=== PATIENT | female | born 1995 | race Caucasian/White ===

== ENCOUNTER 2019-07-06 09:54 | Inpatient (IN) | payer BC ==
--- NOTE | 2019-07-06 12:11 | PCM.LDHP ---
L&D History of Present Illness - General Date of Service: 07/06/19 Admit Problem/Dx: Admission Diagnosis/Problem Admission Diagnosis/Problem Source of Information: Patient History Limitations: Reports: No Limitations - History of Present Illness Introduction:: 24 year old at 39+ weeks here for induction of labor. PNC with myself without complications. H&P Review of Systems - Review of Systems: Review Of Systems: See Below General: Reports: No Symptoms HEENT: Reports: No Symptoms Pulmonary: Reports: No Symptoms Cardiovascular: Reports: No Symptoms Gastrointestinal: Reports: No Symptoms Genitourinary: Reports: No Symptoms Musculoskeletal: Reports: No Symptoms Skin: Reports: No Symptoms Psychiatric: Reports: No Symptoms Neurological: Reports: No Symptoms Hematologic/Lymphatic: Reports: No Symptoms Immunologic: Reports: No Symptoms L&D Exam - Exam Exam: See Below - Vital Signs Vital Signs: Last Vital Signs Temp 37.2 C 07/06/19 10:52 Pulse 96 07/06/19 10:52 Resp 18 07/06/19 10:52 BP 118/70 07/06/19 10:52 Pulse Ox 96 07/06/19 10:52 - OB Specific Contraction Intensity: Moderate to Strong Movement: Active Heart Tones: Present Heart Rate (FHR) Variability: Moderate (6-25 bmp) Presentation: Vertex - Exam General: Alert, Oriented HEENT: PERRLA, Conjunctiva Clear, EACs Clear, EOMI, Hearing Intact, Mucosa Moist & [place], Nares Patent, Normal Nasal Septum, Posterior Pharynx Clear, TMs Clear Neck: Supple, Trachea Midline Lungs: Clear to Auscultation, Normal Respiratory Effort Cardiovascular: Regular Rate, Regular Rhythm GI/Abdominal Exam: Normal Bowel Sounds, Soft, Non-Tender, No Organomegaly, No Distention, No Abnormal Bruit, No Mass, Pelvis Stable Rectal Exam: Normal Exam, Normal Rectal Tone Genitourinary: Normal external exam, Normal bimanual exam, Normal speculum exam Back Exam: Normal Inspection, Full Range of Motion Extremities: Normal Inspection, Normal Range of Motion, Non-Tender, No Pedal Edema, Normal Capillary Refill Skin: Warm, Dry, Intact Neurological: Cranial Nerves Intact, Reflexes Equal Bilateral Psychiatric: Alert, Normal Affect, Normal Mood Problem List Initiated/Reviewed/Updated: Yes Assessment/Plan Comment:: Doing well. Will start pitocin when staffing able
[2019-07-06] MEDS ORDERED: Sodium Chloride 0.9% 10 ML Syringe FLUSH PRN (14:11)
[2019-07-06] MEDS ORDERED: Ondansetron 4 MG/2 ML SDV IVPUSH PRN (14:11)
[2019-07-06] MEDS ORDERED: Nalbuphine 10 MG/1 ML Vial IVPUSH PRN (14:11)
[2019-07-06] MEDS ORDERED: Oxytocin/Lactated Ringers 10 UNIT/1,000 ML BAG IV SCH ×2 (14:15)
[2019-07-06] MEDS: Lactated Ringers 1,000 ML IV SCH ×3 (14:26→23:02)
[2019-07-06] MEDS ORDERED: Ampicillin 2 GM in Sodium Chloride 0.9% 100 ML IV ONE (14:30)
[2019-07-06] MEDS ORDERED: fentaNYL/Bupivacaine/NS 2 MCG-0.125% 250 ML EPIDUR PRN (16:54)
[2019-07-06] MEDS ORDERED: fentaNYL 100 MCG/2 ML SDV EPIDUR PRN (16:54)
[2019-07-06] MEDS ORDERED: ePHEDrine 50 MG/ML SDV IVPUSH PRN (16:54)
[2019-07-06] MEDS ORDERED: diphenhydrAMINE 50 MG/ML SDV IVPUSH PRN (16:54)
--- NOTE | 2019-07-06 16:54 | PCM.PREANE ---
Preanesthetic Assessment - Anesthesia/Transfusion/Family Hx Anesthesia History: Prior Anesthesia Without Reaction Transfusion History: No Prior Transfusion(s) - Review of Systems General: No Symptoms Pulmonary: No Symptoms Cardiovascular: No Symptoms Gastrointestinal: No Symptoms Neurological: No Symptoms Other: Reports: None - Physical Assessment NPO Status Date: 07/06/19 NPO Status Time: 16:45 Vital Signs: Last Vital Signs Temp 99.0 F 07/06/19 10:52 Pulse 90 07/06/19 14:02 Resp 18 07/06/19 10:52 BP 118/70 07/06/19 10:52 Pulse Ox 96 07/06/19 10:52 Height: 1.68 m Weight: 93.667 kg ASA Class: 2 Airway Class: Mallampati = 1 Dentition: Reports: Normal Dentition Thyro-Mental Finger Breadths: 3 Mouth Opening Finger Breadths: 3 ROM/Head Extension: Full Lungs: Clear to Auscultation Cardiovascular: Regular Rate - Lab Values: Laboratory Last Values WBC 5.60 K/mm3 (3.98-10.04) 07/06/19 14:28 RBC 3.98 M/mm3 (3.98-5.22) 07/06/19 14:28 Hgb 11.9 gm/dl (11.2-15.7) 07/06/19 14:28 Hct 36.1 % (34.1-44.9) 07/06/19 14:28 MCV 90.7 fl (79.4-94.8) 07/06/19 14:28 MCH 29.9 pg (25.6-32.2) 07/06/19 14:28 MCHC 33.0 g/dl (32.2-35.5) 07/06/19 14:28 RDW Std Deviation 42.3 fL (36.4-46.3) 07/06/19 14:28 Plt Count 142 K/mm3 (182-369) L 07/06/19 14:28 MPV 11.8 fl (9.4-12.3) 07/06/19 14:28 Neut % (Auto) 69.4 % (34.0-71.1) 07/06/19 14:28 Lymph % (Auto) 20.2 % (19.3-51.7) 07/06/19 14:28 Boyle % (Auto) 9.1 % (4.7-12.5) 07/06/19 14:28 Eos % (Auto) 1.1 (0.7-5.8) 07/06/19 14:28 Baso % (Auto) 0.0 % (0.1-1.2) L 07/06/19 14:28 Neut # (Auto) 3.89 K/mm3 (1.56-6.13) 07/06/19 14:28 Lymph # (Auto) 1.13 K/mm3 (1.18-3.74) L 07/06/19 14:28 [place] # (Auto) 0.51 K/mm3 (0.24-0.36) H 07/06/19 14:28 Eos # (Auto) 0.06 K/mm3 (0.04-0.36) 07/06/19 14:28 Baso # (Auto) 0.00 K/mm3 (0.01-0.08) L 07/06/19 14:28 - Allergies Allergies/Adverse Reactions: Allergies Allergy/AdvReac Type Severity Reaction Status Date / Time No Known Allergies Allergy Verified 07/06/19 14:10 - Acknowledgements Anesthesia Type Planned: Epidural Pt an Appropriate Candidate for the Planned Anesthesia: Yes Alternatives and Risks of Anesthesia Discussed w Pt/Guardian: Yes Pt/Guardian Understands and Agrees with Anesthesia Plan: Yes PreAnesthesia Questionnaire PROVIDER RELATIONS REPRESENTATIVE History: Reports: - Past Surgical History HEENT Surgical History: Reports: Oral Surgery Other HEENT Surgeries/Procedures: wisdom teeth - SUBSTANCE USE Smoking Status *Q: Never Smoker Second Hand Smoke Exposure: No Recreational Drug Use History: No - HOME MEDS Home Medications: Home Meds Omeprazole Magnesium [Prilosec Otc] 20 mg PO DAILY 07/06/19 [History] Vits #93/Iron Fum/FA [ Formula Tablet] 1 tab PO DAILY 07/06/19 [History] - CURRENT (IN HOUSE) MEDS Current Meds: Current Medications Ampicillin Sodium 1 gm/ Sodium (Chloride) 100 mls @ 200 mls/hr IV Q4H LEYLA Lactated Ringer's (Ringers, Lactated) 1,000 mls @ 100 mls/hr IV ASDIRECTED LEYLA Last Admin: 07/06/19 14:26 Dose: 100 mls/hr Oxytocin/Lactated Ringer's (Pitocin In Lr 10 Units/1,000 Ml) 10 unit in 1,000 mls @ 500 mls/hr IV .CONTINUOUS LEYLA Oxytocin/Lactated Ringer's (Pitocin In Lr 10 Units/1,000 Ml) 10 unit in 1,000 mls @ 12 mls/hr IV TITRATE LEYLA; Protocol Last Titration: 07/06/19 16:15 Dose: 6 munits/min, 36 mls/hr Nalbuphine HCl (Nubain) 10 mg IVPUSH Q2H PRN PRN Reason: Pain Ondansetron HCl (Zofran) 4 mg IVPUSH Q4H PRN PRN Reason: Nausea/Vomiting Sodium Chloride (Saline Flush) 10 ml FLUSH ASDIRECTED PRN PRN Reason: Keep Vein Open Discontinued Medications Ampicillin Sodium 2 gm/ Sodium (Chloride) 100 mls @ 200 mls/hr IV ONETIME ONE Stop: 07/06/19 14:59 Last Admin: 07/06/19 14:26 Dose: 200 mls/hr
--- NOTE | 2019-07-06 17:21 | PCM.SN ---
- Free Text/Narrative Note: Cervix is 1-2 cm dilated, 60% effaced, soft, posterior, -1 station. Amniotomy performed clear fluid. An C 1720 hrs.) category 1 heart rate.
[2019-07-06] MEDS: Ampicillin 1 GM in Sodium Chloride 0.9% 100 ML IV SCH ×2 (18:25→22:14)
--- NOTE | 2019-07-06 20:14 | PCM.SN ---
- Free Text/Narrative Note: Cervix 4 cm, 50% effaced, soft, posterior, vertex-1. Cat I FHR. Ready for epidural.
[2019-07-07] MEDS ORDERED: Misoprostol 100 MCG Tab ONE (00:39)
[2019-07-07] MEDS ORDERED: Misoprostol 200 MCG Tab ONE (00:40)
--- NOTE | 2019-07-07 00:53 | PCM.DEL ---
L & D Note - General Info Date of Service: 07/07/19 - Delivery Note Labor: Augmented by ARM, Augmented by Oxytocin Delivery Outcome: Livebirth (Spontaneous vaginal delivery at 00 32 hours on Tuesday07/07/19 under epidural anesthesia over no episiotomy, first-degree supra urethral laceration not bleeding not sutured weight 4260 g 9 pounds 6.3 ounces Apgars 9/9 KANDY) Infant Delivery Method: Spontaneous Vaginal Delivery-Single Infant Delivery Mode: Spontaneous Presentation: Left Occiput Anterior (KANDY) Nuchal Cord: None Prep: Povidone-Iodine (Betadine Anesthesia Type: Epidural Episiotomy Type: None Laceration: 1st Degree (Supraurethral not bleeding not sutured) Placenta: Intact, Spontaneous (00 35 hours Tuesday07/07/19 spontaneous examined and tacked discarded) Cord: 3 Vessels Estimated Blood Loss: 500 (Cytotec 200 mcg x2 Buccal) Resuscitation Needed: No : Suctioned, Bulb Syringe, Stimulated, Warmed, [place] Used, Warmer Used Provider: Dusty Keith Score 1 min: 9 Score 5 min: 9 - General Info Date of Service: 07/07/19 Functional Status: Reports: Pain Controlled - Review of Systems General: Reports: No Symptoms HEENT: Reports: No Symptoms Pulmonary: Reports: No Symptoms Cardiovascular: Reports: No Symptoms Gastrointestinal: Reports: No Symptoms Genitourinary: Reports: No Symptoms Musculoskeletal: Reports: No Symptoms Skin: Reports: No Symptoms Neurological: Reports: No Symptoms Psychiatric: Reports: No Symptoms - Patient Data Vitals - Most Recent: Last Vital Signs Temp 99.0 F 07/06/19 10:52 Pulse 90 07/06/19 14:02 Resp 18 07/06/19 10:52 BP 118/70 07/06/19 10:52 Pulse Ox 96 07/06/19 10:52 Weight - Most Recent: 206 lb 8 oz I&O - Last 24 Hours: Intake & Output 07/06/19 07/06/19 07/07/19 14:59 22:59 06:59 Intake Total 200 Balance 200 Lab Results Last 24 Hours: Laboratory Results - last 24 hr 07/06/19 07/06/19 Range/Units 14:28 14:28 WBC 5.60 (3.98-10.04) K/mm3 RBC 3.98 (3.98-5.22) M/mm3 Hgb 11.9 (11.2-15.7) gm/dl Hct 36.1 (34.1-44.9) % MCV 90.7 (79.4-94.8) fl MCH 29.9 (25.6-32.2) pg MCHC 33.0 (32.2-35.5) g/dl RDW Std Deviation 42.3 (36.4-46.3) fL Plt Count 142 L (182-369) K/mm3 MPV 11.8 (9.4-12.3) fl Neut % (Auto) 69.4 (34.0-71.1) % Lymph % (Auto) 20.2 (19.3-51.7) % [place] % (Auto) 9.1 (4.7-12.5) % Eos % (Auto) 1.1 (0.7-5.8) Baso % (Auto) 0.0 L (0.1-1.2) % Neut # (Auto) 3.89 (1.56-6.13) K/mm3 Lymph # (Auto) 1.13 L (1.18-3.74) K/mm3 [place] # (Auto) 0.51 H (0.24-0.36) K/mm3 Eos # (Auto) 0.06 (0.04-0.36) K/mm3 Baso # (Auto) 0.00 L (0.01-0.08) K/mm3 RPR Non-reactive (NONREACTIVE) Med Orders - Current: Current Medications Diphenhydramine HCl (Benadryl) 25 mg IVPUSH Q6H PRN PRN Reason: pruritis Ephedrine Sulfate (Ephedrine Sulfate) 5 mg IVPUSH ASDIRECTED PRN PRN Reason: Hypotension Fentanyl (Sublimaze) 100 mcg EPIDUR Q3H PRN PRN Reason: Pain Last Admin: 07/06/19 20:41 Dose: 100 mcg Fentanyl/Bupivacaine HCl (Fentanyl/Bupivacaine/Ns 2 Mcg-0.125% 250 Ml) 250 ml EPIDUR CONTINUOUS PRN PRN Reason: Pain Last Admin: 07/06/19 20:41 Dose: 250 ml Ampicillin Sodium 1 gm/ Sodium (Chloride) 100 mls @ 200 mls/hr IV Q4H LEYLA Last Admin: 07/06/19 22:14 Dose: 200 mls/hr Lactated Ringer's (Ringers, Lactated) 1,000 mls @ 100 mls/hr IV ASDIRECTED LEYLA Last Admin: 07/06/19 23:02 Dose: 100 mls/hr Oxytocin/Lactated Ringer's (Pitocin In Lr 10 Units/1,000 Ml) 10 unit in 1,000 mls @ 500 mls/hr IV .CONTINUOUS LEYLA Oxytocin/Lactated Ringer's (Pitocin In Lr 10 Units/1,000 Ml) 10 unit in 1,000 mls @ 12 mls/hr IV TITRATE LEYLA; Protocol Last Titration: 07/06/19 18:26 Dose: 6 munits/min, 36 mls/hr Nalbuphine HCl (Nubain) 10 mg IVPUSH Q2H PRN PRN Reason: Pain Last Admin: 07/06/19 19:21 Dose: 10 mg Ondansetron HCl (Zofran) 4 mg IVPUSH Q4H PRN PRN Reason: Nausea/Vomiting Sodium Chloride (Saline Flush) 10 ml FLUSH ASDIRECTED PRN PRN Reason: Keep Vein Open Discontinued Medications Ampicillin Sodium 2 gm/ Sodium (Chloride) 100 mls @ 200 mls/hr IV ONETIME ONE Stop: 07/06/19 14:59 Last Admin: 07/06/19 14:26 Dose: 200 mls/hr Misoprostol (Cytotec) Confirm Administered Dose 100 mcg .ROUTE .STK-MED ONE Stop: 07/07/19 00:40 Misoprostol (Cytotec) Confirm Administered Dose 400 mcg .ROUTE .STK-MED ONE Stop: 07/07/19 00:41 - Exam General: Alert, Oriented HEENT: Mucous Membr. Moist/[place] Neck: Supple Lungs: Clear to Auscultation, Normal Respiratory Effort Cardiovascular: Regular Rate, Regular Rhythm GI/Abdominal Exam: Normal Bowel Sounds, Soft, Non-Tender Extremities: Normal Inspection, Non-Tender, No Pedal Edema, Normal Capillary Refill Skin: Warm, Dry, Intact Psy/Mental Status: Alert, Normal Affect, Normal Mood - Problem List & Annotations (1) 39 weeks gestation of SNOMED Code(s): 91501704 Code(s): Z3A.39 - 39 WEEKS GESTATION OF Status: Acute Current Visit: Yes (2) Encounter for full-term uncomplicated delivery SNOMED Code(s): 519305110 Code(s): O80 - ENCOUNTER FOR FULL-TERM UNCOMPLICATED DELIVERY Status: Acute Current Visit: Yes (3) First degree perineal laceration, delivered, current hospitalization SNOMED Code(s): 781828245, 756007225 Code(s): O70.0 - FIRST DEGREE PERINEAL LACERATION DURING DELIVERY Status: Acute Current Visit: Yes - Problem List Review Problem List Initiated/Reviewed/Updated: No - Assessment Assessment:: Charlie sánchez vaginal delivery 07/07/19 at 00 32 hours - Plan Plan:: Doing well. Will start pitocin when staffing able
[2019-07-07] MEDS ORDERED: Witch Hazel Medicated Pads 40/Jar TOP PRN (06:53)
[2019-07-07] MEDS ORDERED: Simethicone 80 MG Tab.Chew PO PRN (06:53)
[2019-07-07] MEDS ORDERED: Misoprostol 200 MCG Tab PO ONE (07:30)
[2019-07-07] MEDS ORDERED: Benzocaine/Menthol 20%-0.5% Spray 56 GM Canister TOP PRN (07:32)
[2019-07-07] MEDS: Ibuprofen 600 MG Tab PO PRN ×3 (09:37→20:03)
[2019-07-07] MEDS: Docusate Sodium 100 MG Cap PO PRN ×2 (09:37→20:12)
--- NOTE | 2019-07-07 11:43 | PCM.SN ---
- Free Text/Narrative Note: Day of delivery. Patient is doing well no heavy vaginal bleeding no leg cramping will probably be able to be dismissed tomorrow. No complaints.
[2019-07-07] MEDS: Ampicillin 1 GM in Sodium Chloride 0.9% 100 ML IV SCH (12:59)
--- NOTE | 2019-07-07 14:24 | PCM48HPAN ---
Post Anesthesia Note - EVALUATION WITHIN 48HRS OF ANESTHETIC Vital Signs in Normal Range: Yes Patient Participated in Evaluation: Yes Respiratory Function Stable: Yes Airway Patent: Yes Cardiovascular Function Stable: Yes Hydration Status Stable: Yes Pain Control Satisfactory: Yes Nausea and Vomiting Control Satisfactory: Yes Mental Status Recovered: Yes Vital Signs: Last Vital Signs Temp 36.2 C 07/07/19 09:05 Pulse 73 07/07/19 09:05 Resp 16 07/07/19 09:05 BP 126/79 07/07/19 09:05 Pulse Ox 98 07/07/19 09:05 - COMMENTS/OBSERVATIONS Free Text/Narrative:: Patient doing well. No concerns. No complaints. No questions.
[2019-07-07] MEDS: Acetaminophen 325 MG Tab PO PRN (22:24)
[2019-07-08] MEDS ORDERED: Lidocaine 1.5% with EPINEPHrine 1:200,000 5 ML Amp ONE
[2019-07-08] MEDS: Ibuprofen 600 MG Tab PO PRN ×2 (00:07→14:22)
[2019-07-08] MEDS: Acetaminophen 325 MG Tab PO PRN (06:28)
--- NOTE | 2019-07-08 11:17 | PCM.DCSUM1 ---
Discharge Summary - Hospital Course Free Text/Narrative:: [facility] LIVE L/D Delivery Note Patient Name: BONY HARRELL Date of : 89 Patient Status: Inpatient Attending Provider: Colleen Hendrix Date: 07/07/19 00:48 Initialization Date: 07/07/19 00:48 L & D Note - General Info Date of Service: 07/07/19 - Delivery Note Labor: Augmented by ARM, Augmented by Oxytocin Delivery Outcome: Livebirth (Spontaneous vaginal delivery at 00 32 hours on Tuesday07/07/19 under epidural anesthesia over no episiotomy, first-degree supra urethral laceration not bleeding not sutured weight 4260 g 9 pounds 6.3 ounces Apgars 9/9 KANDY) Delivery Method: Spontaneous Vaginal Delivery-Single Delivery Mode: Spontaneous Presentation: Left Occiput Anterior (KANDY) Nuchal Cord: None Prep: Povidone-Iodine (Betadine Anesthesia Type: Epidural Episiotomy Type: None Laceration: 1st Degree (Supraurethral not bleeding not sutured) Placenta: Intact, Spontaneous (00 35 hours Tuesday07/07/19 spontaneous examined and tacked discarded) Cord: 3 Vessels Estimated Blood Loss: 500 (Cytotec 200 mcg x2 Buccal) Resuscitation Needed: No : Suctioned, Bulb Syringe, Stimulated, Warmed, [place] Used, Warmer Used Provider: Dusty Keith Score 1 min: 9 Score 5 min: 9 - General Info Date of Service: 07/07/19 Functional Status: Reports: Pain Controlled - Review of Systems General: Reports: No Symptoms HEENT: Reports: No Symptoms Pulmonary: Reports: No Symptoms Cardiovascular: Reports: No Symptoms Gastrointestinal: Reports: No Symptoms Genitourinary: Reports: No Symptoms Musculoskeletal: Reports: No Symptoms Skin: Reports: No Symptoms Neurological: Reports: No Symptoms Psychiatric: Reports: No Symptoms - Patient Data Vitals - Most Recent: Last Vital Signs Temp 99.0 F 07/06/19 10:52 Pulse 90 07/06/19 14:02 Resp 18 07/06/19 10:52 BP 118/70 07/06/19 10:52 Pulse Ox 96 07/06/19 10:52 Weight - Most Recent: 206 lb 8 oz I&O - Last 24 Hours: Intake & Output 07/06/19 07/06/19 07/07/19 14:59 22:59 06:59 Intake Total 200 Balance 200 Lab Results Last 24 Hours: Laboratory Results - last 24 hr 07/06/19 07/06/19 Range/Units 14:28 14:28 WBC 5.60 (3.98-10.04) K/mm3 RBC 3.98 (3.98-5.22) M/mm3 Hgb 11.9 (11.2-15.7) gm/dl Hct 36.1 (34.1-44.9) % MCV 90.7 (79.4-94.8) fl MCH 29.9 (25.6-32.2) pg MCHC 33.0 (32.2-35.5) g/dl RDW Std Deviation 42.3 (36.4-46.3) fL Plt Count 142 L (182-369) K/mm3 MPV 11.8 (9.4-12.3) fl Neut % (Auto) 69.4 (34.0-71.1) % Lymph % (Auto) 20.2 (19.3-51.7) % [place] % (Auto) 9.1 (4.7-12.5) % Eos % (Auto) 1.1 (0.7-5.8) Baso % (Auto) 0.0 L (0.1-1.2) % Neut # (Auto) 3.89 (1.56-6.13) K/mm3 Lymph # (Auto) 1.13 L (1.18-3.74) K/mm3 [place] # (Auto) 0.51 H (0.24-0.36) K/mm3 Eos # (Auto) 0.06 (0.04-0.36) K/mm3 Baso # (Auto) 0.00 L (0.01-0.08) K/mm3 RPR Non-reactive (NONREACTIVE) Med Orders - Current: Current Medications Diphenhydramine HCl (Benadryl) 25 mg IVPUSH Q6H PRN PRN Reason: pruritis Ephedrine Sulfate (Ephedrine Sulfate) 5 mg IVPUSH ASDIRECTED PRN PRN Reason: Hypotension Fentanyl (Sublimaze) 100 mcg EPIDUR Q3H PRN PRN Reason: Pain Last Admin: 07/06/19 20:41 Dose: 100 mcg Fentanyl/Bupivacaine HCl (Fentanyl/Bupivacaine/Ns 2 Mcg-0.125% 250 Ml) 250 ml EPIDUR CONTINUOUS PRN PRN Reason: Pain Last Admin: 07/06/19 20:41 Dose: 250 ml Ampicillin Sodium 1 gm/ Sodium (Chloride) 100 mls @ 200 mls/hr IV Q4H LEYLA Last Admin: 07/06/19 22:14 Dose: 200 mls/hr Lactated Ringer's (Ringers, Lactated) 1,000 mls @ 100 mls/hr IV ASDIRECTED LEYLA Last Admin: 07/06/19 23:02 Dose: 100 mls/hr Oxytocin/Lactated Ringer's (Pitocin In Lr 10 Units/1,000 Ml) 10 unit in 1,000 mls @ 500 mls/hr IV .CONTINUOUS LEYLA Oxytocin/Lactated Ringer's (Pitocin In Lr 10 Units/1,000 Ml) 10 unit in 1,000 mls @ 12 mls/hr IV TITRATE LEYLA; Protocol Last Titration: 07/06/19 18:26 Dose: 6 munits/min, 36 mls/hr Nalbuphine HCl (Nubain) 10 mg IVPUSH Q2H PRN PRN Reason: Pain Last Admin: 07/06/19 19:21 Dose: 10 mg Ondansetron HCl (Zofran) 4 mg IVPUSH Q4H PRN PRN Reason: Nausea/Vomiting Sodium Chloride (Saline Flush) 10 ml FLUSH ASDIRECTED PRN PRN Reason: Keep Vein Open Discontinued Medications Ampicillin Sodium 2 gm/ Sodium (Chloride) 100 mls @ 200 mls/hr IV ONETIME ONE Stop: 07/06/19 14:59 Last Admin: 07/06/19 14:26 Dose: 200 mls/hr Misoprostol (Cytotec) Confirm Administered Dose 100 mcg .ROUTE .STK-MED ONE Stop: 07/07/19 00:40 Misoprostol (Cytotec) Confirm Administered Dose 400 mcg .ROUTE .STK-MED ONE Stop: 07/07/19 00:41 - Exam General: Alert, Oriented HEENT: Mucous Membr. Moist/[place] Neck: Supple Lungs: Clear to Auscultation, Normal Respiratory Effort Cardiovascular: Regular Rate, Regular Rhythm GI/Abdominal Exam: Normal Bowel Sounds, Soft, Non-Tender Extremities: Normal Inspection, Non-Tender, No Pedal Edema, Normal Capillary Refill Skin: Warm, Dry, Intact Psy/Mental Status: Alert, Normal Affect, Normal Mood - Problem List & Annotations (1) 39 weeks gestation of SNOMED Code(s): 63969095 Code(s): Z3A.39 - 39 WEEKS GESTATION OF Status: Acute Current Visit: Yes (2) Encounter for full-term uncomplicated delivery SNOMED Code(s): 670638840 Code(s): O80 - ENCOUNTER FOR FULL-TERM UNCOMPLICATED DELIVERY Status: Acute Current Visit: Yes (3) First degree perineal laceration, delivered, current hospitalization SNOMED Code(s): 895345567, 105920015 Code(s): O70.0 - FIRST DEGREE PERINEAL LACERATION DURING DELIVERY Status: Acute Current Visit: Yes - Problem List Review Problem List Initiated/Reviewed/Updated: No - Assessment Assessment:: Charlie sánchez vaginal delivery 07/07/19 at 00 32 hours - Plan Plan:: Doing well. Will start pitocin when staffing able HPI Initial Comments: [facility] LIVE L/D Delivery Note Patient Name: BONY HARRELL Date of : 89 Patient Status: Inpatient Attending Provider: Colleen Hendrix Date: 07/07/19 00:48 Initialization Date: 07/07/19 00:48 L & D Note - General Info Date of Service: 07/07/19 - Delivery Note Labor: Augmented by ARM, Augmented by Oxytocin Delivery Outcome: Livebirth (Spontaneous vaginal delivery at 00 32 hours on Tuesday07/07/19 under epidural anesthesia over no episiotomy, first-degree supra urethral laceration not bleeding not sutured weight 4260 g 9 pounds 6.3 ounces Apgars 9/9 KANDY) Infant Delivery Method: Spontaneous Vaginal Delivery-Single Delivery Mode: Spontaneous Presentation: Left Occiput Anterior (KANDY) Nuchal Cord: None Prep: Povidone-Iodine (Betadine Anesthesia Type: Epidural Episiotomy Type: None Laceration: 1st Degree (Supraurethral not bleeding not sutured) Placenta: Intact, Spontaneous (00 35 hours Tuesday07/07/19 spontaneous examined and tacked discarded) Cord: 3 Vessels Estimated Blood Loss: 500 (Cytotec 200 mcg x2 Buccal) Resuscitation Needed: No : Suctioned, Bulb Syringe, Stimulated, Warmed, [place] Used, Warmer Used Provider: Dusty Keith Score 1 min: 9 Score 5 min: 9 - General Info Date of Service: 07/07/19 Functional Status: Reports: Pain Controlled - Review of Systems General: Reports: No Symptoms HEENT: Reports: No Symptoms Pulmonary: Reports: No Symptoms Cardiovascular: Reports: No Symptoms Gastrointestinal: Reports: No Symptoms Genitourinary: Reports: No Symptoms Musculoskeletal: Reports: No Symptoms Skin: Reports: No Symptoms Neurological: Reports: No Symptoms Psychiatric: Reports: No Symptoms - Patient Data Vitals - Most Recent: Last Vital Signs Temp 99.0 F 07/06/19 10:52 Pulse 90 07/06/19 14:02 Resp 18 07/06/19 10:52 BP 118/70 07/06/19 10:52 Pulse Ox 96 07/06/19 10:52 Weight - Most Recent: 206 lb 8 oz I&O - Last 24 Hours: Intake & Output 07/06/19 07/06/19 07/07/19 14:59 22:59 06:59 Intake Total 200 Balance 200 Lab Results Last 24 Hours: Laboratory Results - last 24 hr 07/06/19 07/06/19 Range/Units 14:28 14:28 WBC 5.60 (3.98-10.04) K/mm3 RBC 3.98 (3.98-5.22) M/mm3 Hgb 11.9 (11.2-15.7) gm/dl Hct 36.1 (34.1-44.9) % MCV 90.7 (79.4-94.8) fl MCH 29.9 (25.6-32.2) pg MCHC 33.0 (32.2-35.5) g/dl RDW Std Deviation 42.3 (36.4-46.3) fL Plt Count 142 L (182-369) K/mm3 MPV 11.8 (9.4-12.3) fl Neut % (Auto) 69.4 (34.0-71.1) % Lymph % (Auto) 20.2 (19.3-51.7) % [place] % (Auto) 9.1 (4.7-12.5) % Eos % (Auto) 1.1 (0.7-5.8) Baso % (Auto) 0.0 L (0.1-1.2) % Neut # (Auto) 3.89 (1.56-6.13) K/mm3 Lymph # (Auto) 1.13 L (1.18-3.74) K/mm3 [place] # (Auto) 0.51 H (0.24-0.36) K/mm3 Eos # (Auto) 0.06 (0.04-0.36) K/mm3 Baso # (Auto) 0.00 L (0.01-0.08) K/mm3 RPR Non-reactive (NONREACTIVE) Med Orders - Current: Current Medications Diphenhydramine HCl (Benadryl) 25 mg IVPUSH Q6H PRN PRN Reason: pruritis Ephedrine Sulfate (Ephedrine Sulfate) 5 mg IVPUSH ASDIRECTED PRN PRN Reason: Hypotension Fentanyl (Sublimaze) 100 mcg EPIDUR Q3H PRN PRN Reason: Pain Last Admin: 07/06/19 20:41 Dose: 100 mcg Fentanyl/Bupivacaine HCl (Fentanyl/Bupivacaine/Ns 2 Mcg-0.125% 250 Ml) 250 ml EPIDUR CONTINUOUS PRN PRN Reason: Pain Last Admin: 07/06/19 20:41 Dose: 250 ml Ampicillin Sodium 1 gm/ Sodium (Chloride) 100 mls @ 200 mls/hr IV Q4H LEYLA Last Admin: 07/06/19 22:14 Dose: 200 mls/hr Lactated Ringer's (Ringers, Lactated) 1,000 mls @ 100 mls/hr IV ASDIRECTED LEYLA Last Admin: 07/06/19 23:02 Dose: 100 mls/hr Oxytocin/Lactated Ringer's (Pitocin In Lr 10 Units/1,000 Ml) 10 unit in 1,000 mls @ 500 mls/hr IV .CONTINUOUS LEYLA Oxytocin/Lactated Ringer's (Pitocin In Lr 10 Units/1,000 Ml) 10 unit in 1,000 mls @ 12 mls/hr IV TITRATE LEYLA; Protocol Last Titration: 07/06/19 18:26 Dose: 6 munits/min, 36 mls/hr Nalbuphine HCl (Nubain) 10 mg IVPUSH Q2H PRN PRN Reason: Pain Last Admin: 07/06/19 19:21 Dose: 10 mg Ondansetron HCl (Zofran) 4 mg IVPUSH Q4H PRN PRN Reason: Nausea/Vomiting Sodium Chloride (Saline Flush) 10 ml FLUSH ASDIRECTED PRN PRN Reason: Keep Vein Open Discontinued Medications Ampicillin Sodium 2 gm/ Sodium (Chloride) 100 mls @ 200 mls/hr IV ONETIME ONE Stop: 07/06/19 14:59 Last Admin: 07/06/19 14:26 Dose: 200 mls/hr Misoprostol (Cytotec) Confirm Administered Dose 100 mcg .ROUTE .STK-MED ONE Stop: 07/07/19 00:40 Misoprostol (Cytotec) Confirm Administered Dose 400 mcg .ROUTE .STK-MED ONE Stop: 07/07/19 00:41 - Exam General: Alert, Oriented HEENT: Mucous Membr. Moist/[place] Neck: Supple Lungs: Clear to Auscultation, Normal Respiratory Effort Cardiovascular: Regular Rate, Regular Rhythm GI/Abdominal Exam: Normal Bowel Sounds, Soft, Non-Tender Extremities: Normal Inspection, Non-Tender, No Pedal Edema, Normal Capillary Refill Skin: Warm, Dry, Intact Psy/Mental Status: Alert, Normal Affect, Normal Mood - Problem List & Annotations (1) 39 weeks gestation of SNOMED Code(s): 88618543 Code(s): Z3A.39 - 39 WEEKS GESTATION OF Status: Acute Current Visit: Yes (2) Encounter for full-term uncomplicated delivery SNOMED Code(s): 086231002 Code(s): O80 - ENCOUNTER FOR FULL-TERM UNCOMPLICATED DELIVERY Status: Acute Current Visit: Yes (3) First degree perineal laceration, delivered, current hospitalization SNOMED Code(s): 382171345, 410854043 Code(s): O70.0 - FIRST DEGREE PERINEAL LACERATION DURING DELIVERY Status: Acute Current Visit: Yes - Problem List Review Problem List Initiated/Reviewed/Updated: No - Assessment Assessment:: Charlie sánchez vaginal delivery 07/07/19 at 00 32 hours - Plan Plan:: Doing well. Will start pitocin when staffing able Brief History: [facility] . L[facility]. [facility]: [id number] Date of : Patient Status: Inpatient. Attending Provider: Colleen Hendrixunt Number: [id number]. Date: 07/07/19 00:48Initialization Date: 07/07/19 00:48. L & D Note. - General Info. Date of Service: 07/07/19. - Delivery Note. Labor: Augmented by ARM, Augmented by Oxytocin. Delivery Outcome: Livebirth (Spontaneous vaginal delivery at 00 32 hours on Tuesday under epidural anesthesia over no episiotomy, first-degree supra urethral laceration not bleeding not sutured weight 4260 g 9 pounds 6.3 ounces Apgars 9/ 9 KANDY). Infant Delivery Method: Spontaneous Vaginal Delivery-Single. Infant Delivery Mode: Spontaneous. Presentation: Left Occiput Anterior (KANDY). Nuchal Cord: None. Prep: Povidone-Iodine (Betadine. Anesthesia Type: Epidural. Episiotomy Type: None. Laceration: 1st Degree (Supraurethral not bleeding not sutured). Placenta: Intact, Spontaneous (00 35 hours Tuesday spontaneous examined and tacked discarded). Cord: 3 Vessels. Estimated Blood Loss: 500 (Cytotec 200 mcg x2 Buccal). Resuscitation Needed: No. [place] : Suctioned, Bulb Syringe, Stimulated, Warmed, [place] Used, Warmer Used. Provider: Dusty Keith. Score 1 min: 9. Score 5 min : 9. - General Info. Date of Service: 07/07/19. Functional Status: Reports: Pain Controlled. - Review of Systems. General: Reports: No Symptoms. HEENT: Reports: No Symptoms. Pulmonary: Reports: No Symptoms. Cardiovascular: Reports : No Symptoms. Gastrointestinal: Reports: No Symptoms. Genitourinary: Reports : No Symptoms. Musculoskeletal: Reports: No Symptoms. Skin: Reports: No Symptoms. Neurological: Reports: No Symptoms. Psychiatric: Reports: No Symptoms. - Patient Data. Vitals - Most Recent: Last Vital Signs. Temp 99.0 F 07/06/19 10:52. Pulse 90 07/06/19 14:02. Resp 18 07/06/19 10:52. BP 118/ 70 07/06/19 10:52. Pulse Ox 96 07/06/19 10:52. Weight - Most Recent: 206 lb 8 oz. I&O - Last 24 Hours: Intake & Output. 07/06/1911. 14: [id number]:5906:59. Intake [id number]. [id number]. Lab Results Last 24 Hours: Laboratory Results - last 24 hr. 07/06/1911Range/Units. 14:2814:28. WBC 5.60 (3.98-10.04) K/mm3. RBC 3.98 (3.98-5.22) M/mm3. Hgb 11.9 (11.2-15.7 ) gm/dl. Hct 36.1 (34.1-44.9) %. MCV 90.7 (79.4-94.8) fl. MCH 29.9 (25.6- 32.2) pg. MCHC 33.0 (32.2-35.5) g/dl. RDW Std Deviation 42.3 (36.4-46.3) fL. Plt Count 142 L (182-369) K/mm3. MPV 11.8 (9.4-12.3) fl. Neut % (Auto) 69.4 (34.0-71.1) %. Lymph % (Auto) 20.2 (19.3-51.7) %. [place] % (Auto) 9.1 ( 4.7-12.5) %. Eos % (Auto) 1.1 (0.7-5.8). Baso % (Auto) 0.0 L (0.1-1.2) %. Neut # (Auto) 3.89 (1.56-6.13) K/mm3. Lymph # (Auto) 1.13 L (1.18-3.74) K/ mm3. [place] # (Auto) 0.51 H (0.24-0.36) K/mm3. Eos # (Auto) 0.06 (0.04-0.36) K /mm3. Baso # (Auto) 0.00 L (0.01-0.08) K/mm3. RPR Non-reactive (NONREACTIVE) . Med Orders - Current: Current Medications. Diphenhydramine HCl (Benadryl) 25 mg IVPUSH Q6H PRN. PRN Reason: pruritis. Ephedrine Sulfate (Ephedrine Sulfate) 5 mg IVPUSH ASDIRECTED PRN. PRN Reason: Hypotension. Fentanyl ( Sublimaze) 100 mcg EPIDUR Q3H PRN. PRN Reason: Pain. Last Admin: 07/06/19 20: 41 Dose: 100 mcg. Fentanyl/Bupivacaine HCl (Fentanyl/Bupivacaine/Ns 2 Mcg- 0.125% 250 Ml) 250 ml EPIDUR CONTINUOUS PRN. PRN Reason: Pain. Last Admin: 20:41 Dose: 250 ml. Ampicillin Sodium 1 gm/ Sodium (Chloride) 100 mls @ 200 mls/hr IV Q4H LEYLA. Last Admin: 07/06/19 22:14 Dose: 200 mls/hr. Lactated Ringer's (Ringers, Lactated) 1,000 mls @ 100 mls/hr IV ASDIRECTED LEYLA. Last Admin: 07/06/19 23:02 Dose: 100 mls/hr. Oxytocin/Lactated Ringer's (Pitocin In Lr 10 Units/1,000 Ml) 10 unit in 1,000 mls @ 500 mls/hr IV .CONTINUOUS LEYLA. Oxytocin/Lactated Ringer's (Pitocin In Lr 10 Units/1,000 Ml) 10 unit in 1,000 mls @ 12 mls/hr IV TITRATE LEYLA; Protocol. Last Titration: 18:26 Dose: 6 munits/min, 36 mls/hr. Nalbuphine HCl (Nubain) 10 mg IVPUSH Q2H PRN. PRN Reason: Pain. Last Admin: 07/06/19 19:21 Dose: 10 mg. Ondansetron HCl (Zofran) 4 mg IVPUSH Q4H PRN. PRN Reason: Nausea/Vomiting. Sodium Chloride (Saline Flush) 10 ml FLUSH ASDIRECTED PRN. PRN Reason: Keep Vein Open. Discontinued Medications. Ampicillin Sodium 2 gm/ Sodium (Chloride ) 100 mls @ 200 mls/hr IV ONETIME ONE. Stop: 07/06/19 14:59. Last Admin: 14:26 Dose: 200 mls/hr. Misoprostol (Cytotec) Confirm Administered Dose 100 mcg .ROUTE .STK-MED ONE. Stop: 07/07/19 00:40. Misoprostol (Cytotec) Confirm Administered Dose 400 mcg .ROUTE .STK-MED ONE. Stop: 07/07/19 00:41. - Exam. General: Alert, Oriented. HEENT: Mucous Membr. Moist/[place]. Neck: Supple. Lungs: Clear to Auscultation, Normal Respiratory Effort. Cardiovascular: Regular Rate, Regular Rhythm. GI/Abdominal Exam: Normal Bowel Sounds, Soft, Non-Tender. Extremities: Normal Inspection, Non-Tender, No Pedal Edema, Normal Capillary Refill. Skin: Warm, Dry, Intact. Psy/Mental Status: Alert, Normal Affect, Normal Mood. - Problem List & Annotations. (1) 39 weeks gestation of . SNOMED Code(s): 91645111. Code(s): Z3A.39 - 39 WEEKS GESTATION OF Status: Acute Current Visit: Yes. (2) Encounter for full-term uncomplicated delivery. SNOMED Code(s): 028387400. Code(s): O80 - ENCOUNTER FOR FULL-TERM UNCOMPLICATED DELIVERY Status: Acute Current Visit: Yes. (3) First degree perineal laceration, delivered, current hospitalization. SNOMED Code(s): 092533298, 426501141. Code(s): O70.0 - FIRST DEGREE PERINEAL LACERATION DURING DELIVERY Status: Acute Current Visit: Yes. - Problem List Review. Problem List Initiated/Reviewed/Updated: No. - Assessment. Assessment:: Charlie sánchez vaginal delivery 07/07/19 at 00 32 hours. - Plan. Plan:: Doing well. Will start pitocin when staffing able Diagnosis: Stroke: No - Discharge Data Discharge Date: 07/08/19 Discharge Disposition: Home, Self-Care 01 Condition: Good - Referral to Home Health Primary Care Physician: Colleen Hendrix MD - Discharge Diagnosis/Problem(s) (1) 39 weeks gestation of SNOMED Code(s): 99819133 ICD Code: Z3A.39 - 39 WEEKS GESTATION OF Status: Acute Current Visit: Yes (2) Encounter for full-term uncomplicated delivery SNOMED Code(s): 976769204 ICD Code: O80 - ENCOUNTER FOR FULL-TERM UNCOMPLICATED DELIVERY Status: Acute Current Visit: Yes (3) First degree perineal laceration, delivered, current hospitalization SNOMED Code(s): 418905778, 364866920 ICD Code: O70.0 - FIRST DEGREE PERINEAL LACERATION DURING DELIVERY Status: Acute Current Visit: Yes - Patient Summary/Data Complications: None Consults: None Hospital Course: Uneventful - Patient Instructions Diet: Usual Diet as Tolerated Driving: Do Not Drive ([place] 48 hours) Showering/Bathing: May Shower Notify Provider of: Fever, Increased Pain, Swelling and Redness, Drainage, Nausea and/or Vomiting - Discharge Plan *PRESCRIPTION DRUG MONITORING PROGRAM REVIEWED*: Not Applicable *COPY OF PRESCRIPTION DRUG MONITORING REPORT IN PATIENT MONET: Not Applicable Home Medications: Home Meds Omeprazole Magnesium [Prilosec Otc] 20 mg PO DAILY 07/06/19 [History] Vits #93/Iron Fum/FA [ Formula Tablet] 1 tab PO DAILY 07/06/19 [History] Acetaminophen [Tylenol] 650 mg PO Q6H PRN tablet 07/08/19 [Rx] Docusate Sodium [Colace] 100 mg PO BID PRN cap 07/08/19 [Rx] Ibuprofen [Motrin] 600 mg PO Q6H PRN tablet 07/08/19 [Rx] Simethicone 80 mg PO Q4H PRN tab.chew 07/08/19 [Rx] Witch Erin [Tucks] 1 pad TOP ASDIRECTED PRN pad 07/08/19 [Rx] Referrals: Colleen Hendrix MD [Primary Care Provider] - (Patient will call Tuesday for appointment) - Discharge Summary/Plan Comment DC Time >30 min.: No - Patient Data Vitals - Most Recent: Last Vital Signs Temp 98.2 F 07/08/19 08:53 Pulse 78 07/08/19 08:53 Resp 16 07/08/19 08:53 BP 123/73 07/08/19 08:53 Pulse Ox 98 07/08/19 08:53 Weight - Most Recent: 206 lb 8 oz I&O - Last 24 hours: Intake & Output 07/07/19 07/08/19 07/08/19 22:59 06:59 14:59 Intake Total 240 0 Balance 240 0 Lab Results - Last 24 hrs: Laboratory Results - last 24 hr 07/08/19 Range/Units 06:15 WBC 6.15 (3.98-10.04) K/mm3 RBC 3.72 L (3.98-5.22) M/mm3 Hgb 11.0 L (11.2-15.7) gm/dl Hct 34.0 L (34.1-44.9) % MCV 91.4 (79.4-94.8) fl MCH 29.6 (25.6-32.2) pg MCHC 32.4 (32.2-35.5) g/dl RDW Std Deviation 42.4 (36.4-46.3) fL Plt Count 136 L (182-369) K/mm3 MPV 11.8 (9.4-12.3) fl Neut % (Auto) 61.2 (34.0-71.1) % Lymph % (Auto) 26.2 (19.3-51.7) % [place] % (Auto) 9.9 (4.7-12.5) % Eos % (Auto) 2.1 (0.7-5.8) Baso % (Auto) 0.3 (0.1-1.2) % Neut # (Auto) 3.76 (1.56-6.13) K/mm3 Lymph # (Auto) 1.61 (1.18-3.74) K/mm3 [place] # (Auto) 0.61 H (0.24-0.36) K/mm3 Eos # (Auto) 0.13 (0.04-0.36) K/mm3 Baso # (Auto) 0.02 (0.01-0.08) K/mm3 Manual Slide Review Normal smear Med Orders - Current: Current Medications Acetaminophen (Tylenol) 650 mg PO Q4H PRN PRN Reason: mild pain or fever Last Admin: 07/08/19 06:28 Dose: 650 mg Benzocaine/Menthol (Dermoplast Pain Relief [place]) 1 gm TOP ASDIRECTED PRN PRN Reason: Perineal Comfort Measure Docusate Sodium (Colace) 100 mg PO BID PRN PRN Reason: Constipation Last Admin: 07/07/19 20:12 Dose: 100 mg Ibuprofen (Motrin) 600 mg PO Q4H PRN PRN Reason: Mild pain or fever Last Admin: 07/08/19 00:07 Dose: 600 mg Simethicone (Simethicone) 80 mg PO Q4H PRN PRN Reason: Gas Witch Erin (Tucks) 1 pad TOP ASDIRECTED PRN PRN Reason: Perineal Comfort Measure Last Admin: 07/07/19 04:00 Dose: 1 each Discontinued Medications Diphenhydramine HCl (Benadryl) 25 mg IVPUSH Q6H PRN PRN Reason: pruritis Ephedrine Sulfate (Ephedrine Sulfate) 5 mg IVPUSH ASDIRECTED PRN PRN Reason: Hypotension Fentanyl (Sublimaze) 100 mcg EPIDUR Q3H PRN PRN Reason: Pain Last Admin: 07/06/19 20:41 Dose: 100 mcg Fentanyl/Bupivacaine HCl (Fentanyl/Bupivacaine/Ns 2 Mcg-0.125% 250 Ml) 250 ml EPIDUR CONTINUOUS PRN PRN Reason: Pain Last Admin: 07/06/19 20:41 Dose: 250 ml Ampicillin Sodium 2 gm/ Sodium (Chloride) 100 mls @ 200 mls/hr IV ONETIME ONE Stop: 07/06/19 14:59 Last Admin: 07/06/19 14:26 Dose: 200 mls/hr Ampicillin Sodium 1 gm/ Sodium (Chloride) 100 mls @ 200 mls/hr IV Q4H LEYLA Last Admin: 07/07/19 12:59 Dose: Not Given Lactated Ringer's (Ringers, Lactated) 1,000 mls @ 100 mls/hr IV ASDIRECTED LEYLA Last Admin: 07/06/19 23:02 Dose: 100 mls/hr Oxytocin/Lactated Ringer's (Pitocin In Lr 10 Units/1,000 Ml) 10 unit in 1,000 mls @ 500 mls/hr IV .CONTINUOUS LEYLA Last Admin: 07/07/19 00:39 Dose: 500 mls/hr Oxytocin/Lactated Ringer's (Pitocin In Lr 10 Units/1,000 Ml) 10 unit in 1,000 mls @ 12 mls/hr IV TITRATE LEYLA; Protocol Last Titration: 07/06/19 18:26 Dose: 6 munits/min, 36 mls/hr Misoprostol (Cytotec) Confirm Administered Dose 100 mcg .ROUTE .STK-MED ONE Stop: 07/07/19 00:40 Last Admin: 07/07/19 07:31 Dose: Not Given Misoprostol (Cytotec) Confirm Administered Dose 400 mcg .ROUTE .STK-MED ONE Stop: 07/07/19 00:41 Last Admin: 07/07/19 07:31 Dose: Not Given Misoprostol (Cytotec) 400 mcg PO ONETIME ONE Stop: 07/07/19 07:31 Last Admin: 07/07/19 00:40 Dose: 400 mcg Nalbuphine HCl (Nubain) 10 mg IVPUSH Q2H PRN PRN Reason: Pain Last Admin: 07/06/19 19:21 Dose: 10 mg Ondansetron HCl (Zofran) 4 mg IVPUSH Q4H PRN PRN Reason: Nausea/Vomiting Sodium Chloride (Saline Flush) 10 ml FLUSH ASDIRECTED PRN PRN Reason: Keep Vein Open
== END 2019-07-08 14:30 | disposition home or self-care (01) | DRG 560 ==
LOC: JD.OB 09:54 → JD.OBCHECK 09:54 → JD.OB 09:55 → OBSVTOIN 07-07 00:32 → JD.OB 07-07 00:33
PROVIDERS: ADMIT Obstetrics & Gynecology; ATTEND Obstetrics & Gynecology
PROC: 10E0XZZ Delivery of Products of Conception, External Approach (ICD-10-PCS; principal; 2019-07-07)
PROC: 3E0R3BZ Introduction of Anesthetic Agent into Spinal Canal, Percutaneous Approach (ICD-10-PCS; 2019-07-07)
PROC: 10907ZC Drainage of Amniotic Fluid, Therapeutic from Products of Conception, Via Natural or Artificial Opening (ICD-10-PCS; 2019-07-07)
PROC: 3E033VJ Introduction of Other Hormone into Peripheral Vein, Percutaneous Approach (ICD-10-PCS; 2019-07-07)
DX: O70.0 First degree perineal laceration during delivery (principal); Z3A.39 39 weeks gestation of pregnancy; Z37.0 Single live birth; Z79.899 Other long term (current) drug therapy
CPT/HCPCS: 01967; 36415; 51702; 59025; 59409; 85025; 86592; A9270-GY; J0290; J2300; J2590; J3010; J7030; J7120